=== PATIENT | male | born 2000 | race Two or more races ===

== ENCOUNTER 2020-10-12 11:54 | Emergency (ER) | payer MEDICAID, OTHER ==
[~2020-10-12] VITALS: Ht 182.9 cm; Wt 81.6 kg
[2020-10-12 14:14] VITALS: BP 112/66
== END 2020-10-12 15:23 | disposition home or self-care (01) ==
LOC: ER 11:54
DX: S16.1XXA Strain of muscle, fascia and tendon at neck level, initial encounter (principal); R51.9 Headache, unspecified; V43.52XA Car driver injured in collision with other type car in traffic accident, initial encounter; Y93.89 Activity, other specified; Y92.410 Unspecified street and highway as the place of occurrence of the external cause; Y99.8 Other external cause status
CPT/HCPCS: 72040